=== PATIENT | male | born 1980 | race Native Hawaiian/Other Pacific Islander ===

== ENCOUNTER 2023-04-05 17:29 | Emergency (ER) | payer MEDICAID ==
[~2023-04-05] VITALS: Ht 172.7 cm; Wt 90.9 kg
[~2023-04-05 17:29] MED LIST: LORA-269 PO
[2023-04-05] MEDS ORDERED: LIDOCAINE 1%/EPI 1:100,000 inj. 10 ML multi-dose vial IJ ONE (18:30)
[2023-04-05] MEDS ORDERED: bacitracin 15gm ointment TP ONE (18:30)
--- NOTE | 2023-04-05 20:19 | NUR ---
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
--- NOTE | 2023-04-05 20:48 | NUR ---
I have reviewed and agree with all interventions, assessments performed and documented by tanner MCMULLEN.
[2023-04-05 21:16] VITALS: BP 148/88; PULSE 90; RESP 16; TEMP 98.3; O2SAT 96
== END 2023-04-05 21:22 ==
LOC: ER 17:30
DX: S62.314A Displaced fracture of base of fourth metacarpal bone, right hand, initial encounter for closed fracture (principal); S01.81XA Laceration without foreign body of other part of head, initial encounter; Z79.899 Other long term (current) drug therapy; X58.XXXA Exposure to other specified factors, initial encounter; Y93.89 Activity, other specified; Y92.89 Other specified places as the place of occurrence of the external cause; Y99.8 Other external cause status
CPT/HCPCS: 12011; 29125; 73130; 99284; A6449